=== PATIENT | male | born 1955 | race Caucasian/White ===

== ENCOUNTER 2018-03-20 13:22 | Inpatient (IN) | payer MEDICARE ==
[~2018-03-20] VITALS: Ht 182.9 cm; Wt 104.8 kg
[~2018-03-20 13:22] MED LIST: DULO30CA2 PO; GABA300C PO; HYDR4TAB57 PO; RAMI5CAP PO
[2018-03-20] MEDS ORDERED: RAMI2.5C PO (13:32)
[2018-03-20] MEDS ORDERED: LAMO25TA PO (13:32)
[2018-03-20] MEDS ORDERED: ALPR1TAB7 PO (13:32)
[2018-03-20] MEDS ORDERED: RIVA10TA PO (13:32)
[2018-03-20] MEDS ORDERED: HYDR4TAB4 PO (13:32)
[2018-03-20] MEDS ORDERED: CITA10TA9 PO (13:32)
[2018-03-20] MEDS ORDERED: ROPI0.5T PO (13:32)
[2018-03-20] MEDS ORDERED: MORP30TA PO (13:32)
[2018-03-20] MEDS ORDERED: ATOR20TA PO (13:32)
[2018-03-20 13:53] LABS: BASOPHILS % (AUTO) 0.6 % (0.0-2.0); EOSINOPHILS # (AUTO) 0.1 K/uL (0.0-0.7); EOSINOPHILS % (AUTO) 1.7 % (0.0-7.0); HEMATOCRIT 40.8 % (36.7-47.1); LYMPHOCYTES # (AUTO) 1.9 K/uL (20.0-40.0); LYMPHOCYTES % (AUTO) 33.3 % (20.5-51.5); MEAN CORPUSCULAR HEMOGLOBIN 31.3 uug (23.8-33.4); MEAN CORPUSCULAR HGB CONC 34 g/dL (32.5-36.3); MEAN CORPUSCULAR VOLUME 90.8 fL (73.0-96.2); MONOCYTES # (AUTO) 0.5 K/uL (2.0-10.0); MONOCYTES % (AUTO) 8.5 % (0.0-11.0); NEUTROPHILS # (AUTO) 3.2 K/uL (1.8-8.9); NEUTROPHILS % (AUTO) 55.9 % (38.5-71.5); PLATELET COUNT (AUTO) 169 K/uL (152-348); RED BLOOD CELL COUNT(AUTO) 4.49 MIL/uL (4.06-5.63); WHITE BLOOD COUNT (AUTO) 5.7 K/uL (3.6-10.2)
[2018-03-20 14:04] LABS: CARBON DIOXIDE 28 mmol/L (21-32); CHLORIDE 103 mmol/L (98-107); CREATININE 0.9 mg/dL (0.6-1.3); GLUCOSE 112 mg/dL (74-106); POTASSIUM 3.8 mmol/L (3.5-5.1); UREA NITROGEN, BLOOD 13 mg/dL (7-18)
[2018-03-20] MEDS ORDERED: HYDROMORPHONE HCL 2 MG TABLET PO ONE (14:15)
[2018-03-20] MEDS ORDERED: ALPRAZOLAM 0.25 MG TABLET PO ONE (14:15)
[2018-03-20] MEDS ORDERED: GABAPENTIN 300 MG CAPSULE PO ONE (14:15)
[2018-03-20 14:17] LABS: ALANINE AMINOTRANSFERASE 35 U/L (16-63); ALKALINE PHOSPHATASE 71 U/L (50-136); ASPARTATE AMINOTRANSFERASE 31 U/L (15-37); BILIRUBIN,DIRECT 0.1 mg/dL (0.0-0.2); BILIRUBIN,TOTAL 0.3 mg/dL (0.2-1.0); TOTAL PROTEIN, SERUM 7.4 g/dL (6.4-8.2)
[2018-03-20 14:20] LABS: ACETAMINOPHEN < 2.0 ug/mL (10-30)
[2018-03-20 14:21] LABS: ETHANOL < 3 MG/DL (0-0)
[2018-03-20] MEDS ORDERED: GABAPENTIN 300 MG CAPSULE ONE (14:47)
[2018-03-20] MEDS ORDERED: HYDROMORPHONE HCL 2 MG TABLET ONE (14:47)
[2018-03-20] MEDS ORDERED: ALPRAZOLAM 0.5 MG TABLET ONE (14:47)
[2018-03-20 14:49] LABS: *BILIRUBIN,URIN NEGATIVE (NEGATIVE); *BLOOD, URINE Trace-lysed (NEGATIVE); *CLARITY,URINE CLEAR (CLEAR); *COLOR,URINE YELLOW (YELLOW); *KETONES,URINE NEGATIVE (NEGATIVE); *PROTEIN,URINE NEGATIVE (NEGATIVE); *UROBILINOGEN,URINE 0.2 E.U./dl (NORMAL); LEUKOCYTE ESTERASE ,URINE NEGATIVE (NEGATIVE); NITRITE, URINE NEGATIVE (NEGATIVE); PH,URINE 5.5 (5.0-8.0); UGLUCOSE NEGATIVE (NEGATIVE)
[2018-03-20 15:03] LABS: *AMPHETAMINE, URINE NEGATIVE (NEGATIVE); *BARBITURATE, URINE NEGATIVE (NEGATIVE); *CANNABINOID, URINE POSITIVE (NEGATIVE); *COCCAINE, URINE NEGATIVE (NEGATIVE); *OPIATE, URINE POSITIVE (NEGATIVE); *PHENCYCLIDINE SCREEN,URINE NEGATIVE (NEGATIVE)
[2018-03-20 15:29] LABS: MUCUS,URINE MANY /LPF (0-FEW); WBC,URINE 0-3 /HPF (0-3)
--- NOTE | 2018-03-20 16:55 | NUR ---
Call placed to Dionisio Chin LCSW, for PET evaluation. ETA 60 min.
--- NOTE | 2018-03-20 18:00 | NUR ---
demian gaines at bedside to evaluate the pt
--- NOTE | 2018-03-20 18:59 | NUR ---
Note magy in EDM - 03/20/18 at 1859 by TORSTEN Patient discharged to home in stable conditon. Written and verbal after care instructions given. Patient verbalizes understanding of instructions.pt walks in steady gait. pt calling brother to come and pickp the pt. pt says will go to brother home for now.
--- NOTE | 2018-03-20 19:06 | NUR ---
hospital sandwich and juice provided for pt. pt at bedside the whole er stay. pt cooperative.
--- NOTE | 2018-03-20 19:07 | NUR ---
hands off report given to irasema del toro
--- NOTE | 2018-03-20 19:47 | NUR ---
Passed report to Yisel Massey RN.
--- NOTE | 2018-03-20 20:00 | NUR ---
ADMITTED PATIENT IN [facility] UNDER THE CARE DR CHILDS, PATIENT ON 72 HOUR HOLD DUE TO DANGER TO SELF, PATIENT ALERT, ACCOMPANIED BY . PATIENT NOTED WITH MULTIPLE SKIN SCRATCHES WITH SCAB ON BOTH HANDS, BOTH FOREARMS, AND SCRATCH ON LEFT FOREHEAD. PATIENT CALM AT THIS TIME, COOPERATIVE WITH CARE. NOTIFY
[2018-03-20] MEDS ORDERED: MAGNESIUM HYDROXIDE 30 ML LIQUID UDC PO PRN (20:15)
[2018-03-20] MEDS ORDERED: MAG HYDROX/AL HYDROX/SIMETH 30 ML LIQUID UDC PO PRN (20:15)
[2018-03-20 21:55] VITALS: BP 165/88
[2018-03-20] MEDS: LORAZEPAM 0.5 MG TABLET PO PRN (22:21)
[2018-03-20] MEDS ORDERED: hydrALAZINE HCL 25 MG TABLET PO PRN (23:15)
[2018-03-20] MEDS ORDERED: ropiniROLE 0.5 MG TABLET PO SCH (23:15)
[2018-03-20] MEDS ORDERED: HYDROMORPHONE HCL 8 MG PO SCH (23:15)
[2018-03-20] MEDS: GABAPENTIN 300 MG CAPSULE PO SCH (23:48)
[2018-03-21] MEDS: HYDROMORPHONE HCL 2 MG TABLET PO PRN ×4 (00:12→18:34)
[2018-03-21] MEDS ORDERED: ropiniROLE 0.25 MG TABLET ONE (00:52)
[2018-03-21] MEDS: LORAZEPAM 0.5 MG TABLET PO PRN ×4 (03:40→18:38)
[2018-03-21] MEDS ORDERED: HYDROMORPHONE HCL 2 MG TABLET ONE (06:14)
--- NOTE | 2018-03-21 07:10 | NUR ---
Requip was given by noc shift at 0052. Dilaudid was given by noc shift at 0614.
--- NOTE | 2018-03-21 07:45 | NUR ---
Shift report given by nightshift RN. Pt admitted for positive suicidal ideations and self-inflicted wounds on travis. upper arms. Rec'd pt awake, pacing hallway. Pt with episode of withdrawals with noc shift secondary to hx of self medicating himself with dilaudid around the clock at home. Will monitor for further episodes. Pt denies pain at this time. No s/s of acute distress noted. Requested for Ativan, administered as ordered for anxiety. All needs met at this time. Denies SI/HI, visual/auditory hallucinations. Will continue to monitor for change.
[2018-03-21 08:00] VITALS: BP 140/89
[2018-03-21] MEDS: NICOTINE 14 MG/24HR PATCH TD SCH (08:54)
[2018-03-21] MEDS: GABAPENTIN 300 MG CAPSULE PO SCH ×4 (08:54→18:00)
[2018-03-21] MEDS ORDERED: RIVAROXABAN 10 MG TABLET PO SCH (09:00)
[2018-03-21] MEDS: RAMIPRIL 1.25 MG CAPSULE PO SCH ×2 (09:00→21:07)
[2018-03-21] MEDS ORDERED: RAMIPRIL 2.5 MG CAPSULE PO SCH (09:00)
--- NOTE | 2018-03-21 11:45 | NUR ---
Noted pt with x3 episodes of moderate amount of yellow, watery with mucus bowel movements. Pt also complaining of abdominal pain. Relayed to RANGEL Ruiz with new order for Stool C-diff x1. Noted and carried out. Pt and aware.
[2018-03-21] MEDS ORDERED: ONDANSETRON ODT 4 MG TAB.RAPDIS SL PRN (13:30)
[2018-03-21] MEDS ORDERED: HYDROMORPHONE 2 MG/1 ML DISP.SYRIN IM ONE (13:30)
--- NOTE | 2018-03-21 13:45 | NUR ---
Found pt sitting on the floor vomiting into the trash can. at side. Per pt and , he did not fall. Per pt, his stomach has been "feeling funny" all morning along with the diarrhea he's been having. However, pt and also feels that it could also be him having withdrawal symptoms in result of having a disruption in his Dilaudid regimen he's been on for the last 8-20 years. Assisted back to bed. Denies injury. Noted pt with large amount of yellow mostly liquid gastric contents emesis. Relayed to RANGEL Ruiz with new order for Zofran and Dilaudid 2mg IM x1dose. Noted and carried out. Pt and notified.
--- NOTE | 2018-03-21 13:54 | NUR ---
Firearms Report: JEFF completed and submitted [facility] Firearms Report on 03/21/18.
[2018-03-21 15:51] VITALS: BP 154/76
--- NOTE | 2018-03-21 15:58 | NUR ---
Initial Discharge Instructions: Patient currently resides at home with his [ [place], [place] [address]; [phone]]. Per pt, he would like to return there when ready for discharge. Nut Roaster Helper will follow-up with patient's , Damaris Ramos ([phone]). SW will continue to collaborate with pt, family, and MD regarding appropriate discharge plans for the patient. SW will form a safe and proper discharge.
[2018-03-21] MEDS: ONDANSETRON ODT 4 MG TAB.RAPDIS SL PRN ×2 (18:05→23:59)
[2018-03-21] MEDS: RIVAROXABAN 10 MG TABLET PO SCH (18:32)
[2018-03-21 20:33] VITALS: BP 126/79
[2018-03-21] MEDS: CITALOPRAM 10 MG TABLET PO SCH (21:04)
[2018-03-21] MEDS: ropiniROLE 0.25 MG TABLET PO SCH (21:04)
[2018-03-21] MEDS: LAMOTRIGINE 25 MG TABLET PO SCH (21:04)
[2018-03-21] MEDS: ATORVASTATIN 20 MG TABLET PO SCH (21:04)
[2018-03-21] MEDS: DULOXETINE 30 MG CAPSULE.DR PO SCH (21:04)
[2018-03-22] MEDS: HYDROMORPHONE HCL 2 MG TABLET PO PRN ×4 (00:54→19:03)
[2018-03-22] MEDS: LORAZEPAM 0.5 MG TABLET PO PRN ×5 (03:31→23:53)
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
[2018-03-22] MEDS ORDERED: LOPERAMIDE HCL 2 MG CAPSULE PO ONE (06:45)
[2018-03-22 07:30] VITALS: BP 149/80
[2018-03-22] MEDS: DULOXETINE 30 MG CAPSULE.DR PO SCH (08:12)
[2018-03-22] MEDS: GABAPENTIN 300 MG CAPSULE PO SCH ×4 (08:12→20:44)
[2018-03-22] MEDS: LAMOTRIGINE 25 MG TABLET PO SCH ×2 (08:12→20:44)
[2018-03-22] MEDS: NICOTINE 14 MG/24HR PATCH TD SCH (08:13)
[2018-03-22] MEDS: ONDANSETRON ODT 4 MG TAB.RAPDIS SL PRN ×2 (09:37→17:12)
[2018-03-22 11:04] LABS: BASOPHILS % (AUTO) 0.6 % (0.0-2.0); EOSINOPHILS % (AUTO) 0.2 % (0.0-7.0); HEMATOCRIT 39.1 % (36.7-47.1); LYMPHOCYTES # (AUTO) 1.5 K/uL (20.0-40.0); LYMPHOCYTES % (AUTO) 20.2 % (20.5-51.5); MEAN CORPUSCULAR HEMOGLOBIN 31.9 uug (23.8-33.4); MEAN CORPUSCULAR HGB CONC 36 g/dL (32.5-36.3); MEAN CORPUSCULAR VOLUME 89.2 fL (73.0-96.2); MONOCYTES # (AUTO) 0.5 K/uL (2.0-10.0); NEUTROPHILS # (AUTO) 5.4 K/uL (1.8-8.9); PLATELET COUNT (AUTO) 185 K/uL (152-348); RED BLOOD CELL COUNT(AUTO) 4.39 MIL/uL (4.06-5.63); WHITE BLOOD COUNT (AUTO) 7.5 K/uL (3.6-10.2)
[2018-03-22 11:09] LABS: BILIRUBIN,TOTAL 0.6 mg/dL (0.2-1.0); MAGNESIUM 1.7 mg/dL (1.8-2.4); PHOSPHOROUS 3.1 mg/dL (2.5-4.9); POTASSIUM 3.5 mmol/L (3.5-5.1); TOTAL PROTEIN, SERUM 7.6 g/dL (6.4-8.2)
[2018-03-22] MEDS: RAMIPRIL 1.25 MG CAPSULE PO SCH ×2 (11:17→20:45)
[2018-03-22] MEDS: NEOMY/BACITRAC/POLYMI OINT 28.35 GM TUBE TOP SCH ×2 (11:18→20:46)
[2018-03-22] MEDS ORDERED: IV NS 1000 ML 1,000 ML IV PRN (12:30)
[2018-03-22] MEDS ORDERED: MAGNESIUM OXIDE 400 MG TABLET PO ONE (12:30)
--- NOTE | 2018-03-22 12:35 | NUR ---
Pt with new order for IVF NS @100ml/hr x1L. Started IV access to left hand 22g. Noted with good backflow, secured with tegaderm and labeled. Denies pain to site. Shirin well.
--- NOTE | 2018-03-22 13:30 | NUR ---
Pt left for CT scan of the head and abd/pelvis. Left via w/c in fair condition. Accompanied by x1 Radiology staff.
--- NOTE | 2018-03-22 13:52 | NUR ---
Relayed pt's negative stool c-diff results to RANGEL Ruiz with new order for Imodium 2mg PO Q6H PRN for diarrhea. Noted and carried out. Pt made aware.
[2018-03-22] MEDS ORDERED: LOPERAMIDE HCL 2 MG CAPSULE PO PRN (14:00)
--- NOTE | 2018-03-22 14:15 | NUR ---
Pt back from radiology. No s/s of acute distress noted. Connected back to IVF. Will continue to monitor for change.
[2018-03-22 15:08] VITALS: BP 134/82
[2018-03-22] MEDS: RIVAROXABAN 10 MG TABLET PO SCH (17:13)
[2018-03-22 20:12] VITALS: BP 135/83
[2018-03-22] MEDS: CITALOPRAM 10 MG TABLET PO SCH (20:43)
[2018-03-22] MEDS: TEMAZEPAM 7.5 MG CAPSULE PO PRN (20:43)
[2018-03-22] MEDS: ATORVASTATIN 20 MG TABLET PO SCH (20:43)
[2018-03-22] MEDS: ropiniROLE 0.25 MG TABLET PO SCH (20:44)
--- NOTE | 2018-03-22 23:45 | NUR ---
GPS/NSG IVF COMPLETE AND DISCONTINUED. IV SITE INTACT.
[2018-03-22] MEDS: ACETAMINOPHEN 325 MG TABLET PO PRN (23:53)
[2018-03-23] MEDS: HYDROMORPHONE HCL 2 MG TABLET PO PRN ×4 (01:40→23:29)
--- NOTE | 2018-03-23 06:34 | NUR ---
GPS/NSG PATIENT FIRST OBSERVED IN ROOM AWAKE. PATIENT VERBALIZED DISCOMFORT, PRN FOR PAIN INEFFECTIVE. PATIENT REQUESTED PRN FOR INSOMNIA, ALSO CALLED TO VERIFY THERE WAS AN ORDER FOR A SLEEPING PILL. ADMINISTERED ORDERED, OUTCOME EFFECTIVE FOR 2.00 HOURS PATIENT AWAKE REQUESTING PRN FOR ANXIETY, ADMINISTERED ORDERED FOLLOWED BY PATIENT VERBALIZING 10/10 PAIN LEVEL, PRN ADMINISTERED ORDERED. PATIENT AWAKE INTERMITTENTLY SLEPT A TOTAL OF FOUR HOURS, CONTINUE TO MONITOR FOR SAFETY.
[2018-03-23 07:30] VITALS: BP 115/66
[2018-03-23] MEDS: RAMIPRIL 1.25 MG CAPSULE PO SCH ×2 (08:08→20:46)
[2018-03-23] MEDS: DULOXETINE 30 MG CAPSULE.DR PO SCH (08:09)
[2018-03-23] MEDS: GABAPENTIN 300 MG CAPSULE PO SCH ×4 (08:10→20:47)
[2018-03-23] MEDS: NICOTINE 14 MG/24HR PATCH TD SCH (08:10)
[2018-03-23] MEDS: LAMOTRIGINE 25 MG TABLET PO SCH ×2 (08:10→20:47)
[2018-03-23] MEDS: ACETAMINOPHEN 325 MG TABLET PO PRN ×2 (08:11→16:29)
[2018-03-23] MEDS: NEOMY/BACITRAC/POLYMI OINT 28.35 GM TUBE TOP SCH ×2 (08:16→20:48)
--- NOTE | 2018-03-23 08:50 | NUR ---
PATIENT IN HIS ROOM COMPLAINING OF PAIN. UNWRAPPED ARMS. STATES HE CAN BARELY MOVE FROM THE PAIN.APPLIED OINTMENT TO ARMS. AND GIVEN PRN MEDICATIONS AND REGULAR MORNING MEDICATIONS.
--- NOTE | 2018-03-23 09:00 | NUR ---
AFTER TAKING PAIN MEDICATION PATIENT IS UP TO THE SIDE OF BED AND EATING BREAKFAST. NO COMPLAINTS OF PAIN ANYMORE AND IS ABLE TO MOVE AROUND.
[2018-03-23 09:18] LABS: BILIRUBIN,TOTAL 0.7 mg/dL (0.2-1.0); CREATININE 0.9 mg/dL (0.6-1.3); MAGNESIUM 1.8 mg/dL (1.8-2.4); POTASSIUM 3.2 mmol/L (3.5-5.1); TOTAL PROTEIN, SERUM 6.8 g/dL (6.4-8.2)
[2018-03-23 09:27] LABS: BASOPHILS % (AUTO) 0.4 % (0.0-2.0); EOSINOPHILS % (AUTO) 0.7 % (0.0-7.0); HEMATOCRIT 37.7 % (36.7-47.1); HEMOGLOBIN 13.3 g/dL (12.5-16.3); LYMPHOCYTES # (AUTO) 1.9 K/uL (20.0-40.0); LYMPHOCYTES % (AUTO) 29.2 % (20.5-51.5); MEAN CORPUSCULAR HEMOGLOBIN 31.4 uug (23.8-33.4); MEAN CORPUSCULAR HGB CONC 35 g/dL (32.5-36.3); MEAN CORPUSCULAR VOLUME 89.2 fL (73.0-96.2); MONOCYTES # (AUTO) 0.7 K/uL (2.0-10.0); MONOCYTES % (AUTO) 10.5 % (0.0-11.0); NEUTROPHILS # (AUTO) 3.8 K/uL (1.8-8.9); NEUTROPHILS % (AUTO) 59.2 % (38.5-71.5); PLATELET COUNT (AUTO) 169 K/uL (152-348); RED BLOOD CELL COUNT(AUTO) 4.23 MIL/uL (4.06-5.63); WHITE BLOOD COUNT (AUTO) 6.5 K/uL (3.6-10.2)
--- NOTE | 2018-03-23 10:09 | NUR ---
Noted pt with episode of fabricating stories. Pt claiming that his pain medication was 2 hrs past due this am. Reviewed pt's E-Mar and pt's PRN Q6hrs Dilaudid was given 30mins past 6hrs, not 2 hrs. Explained to pt, however pt disagrees. Redirected pt back to his room. Will continue to monitor for further behavioral manifestations.
[2018-03-23] MEDS ORDERED: POTASSIUM CHLORIDE 20 MEQ TAB.PRT.SR PO ONE (10:45)
[2018-03-23] MEDS ORDERED: NEUTRA PHOS PACKET PO ONE (10:45)
--- NOTE | 2018-03-23 12:09 | NUR ---
WOUNDS ARE CLOSED AND SCABBED OVER. HEALING WELL.
[2018-03-23] MEDS: LORAZEPAM 0.5 MG TABLET PO PRN ×2 (12:18→17:33)
--- NOTE | 2018-03-23 12:21 | NUR ---
PATIENT SHOWERED CHANGED CLOTHES COMBED HIS HAIR, ASKED FOR ATIVAN AT THIS TIME. PATIENT IS COMPLAINT WITH CARE. PATIENT ENGAGES WITH OTHER PATIENTS.
--- NOTE | 2018-03-23 14:05 | NUR ---
PATIENT IS INTERACTING WITH ANOTHER PATIENT IN HIS ROOM. PATIENT IS COOPERATIVE AND COMPLIANT.
[2018-03-23 15:17] VITALS: BP 147/90
[2018-03-23] MEDS: RIVAROXABAN 10 MG TABLET PO SCH (17:30)
[2018-03-23] MEDS: ONDANSETRON ODT 4 MG TAB.RAPDIS SL PRN (17:32)
[2018-03-23 20:24] VITALS: BP 151/80
[2018-03-23] MEDS: CITALOPRAM 10 MG TABLET PO SCH (20:46)
[2018-03-23] MEDS: ropiniROLE 0.25 MG TABLET PO SCH (20:47)
[2018-03-23] MEDS: ATORVASTATIN 20 MG TABLET PO SCH (20:47)
[2018-03-24] MEDS: ACETAMINOPHEN 325 MG TABLET PO PRN ×2 (01:47→11:35)
[2018-03-24] MEDS: TEMAZEPAM 7.5 MG CAPSULE PO PRN ×2 (01:47→21:32)
[2018-03-24] MEDS: HYDROMORPHONE HCL 2 MG TABLET PO PRN ×3 (06:38→18:38)
[2018-03-24 07:30] VITALS: BP 137/53
[2018-03-24 08:24] LABS: MAGNESIUM 1.9 mg/dL (1.8-2.4); PHOSPHOROUS 3.6 mg/dL (2.5-4.9); POTASSIUM 3.1 mmol/L (3.5-5.1)
[2018-03-24] MEDS: NICOTINE 14 MG/24HR PATCH TD SCH (08:30)
[2018-03-24] MEDS: LAMOTRIGINE 25 MG TABLET PO SCH ×2 (08:30→20:34)
[2018-03-24] MEDS: DULOXETINE 30 MG CAPSULE.DR PO SCH (08:30)
[2018-03-24] MEDS: GABAPENTIN 300 MG CAPSULE PO SCH ×4 (08:30→20:34)
[2018-03-24] MEDS: RAMIPRIL 1.25 MG CAPSULE PO SCH ×2 (08:31→20:34)
[2018-03-24] MEDS: NEOMY/BACITRAC/POLYMI OINT 28.35 GM TUBE TOP SCH ×2 (08:31→21:32)
[2018-03-24] MEDS: LORAZEPAM 0.5 MG TABLET PO PRN ×3 (09:58→22:38)
[2018-03-24] MEDS ORDERED: POTASSIUM CHLORIDE 20 MEQ TAB.PRT.SR PO ONE (12:15)
[2018-03-24 15:47] VITALS: BP 152/79
[2018-03-24] MEDS: RIVAROXABAN 10 MG TABLET PO SCH (17:37)
[2018-03-24 20:00] VITALS: BP 156/83
[2018-03-24] MEDS: ropiniROLE 0.25 MG TABLET PO SCH (20:33)
[2018-03-24] MEDS: ATORVASTATIN 20 MG TABLET PO SCH (20:34)
[2018-03-24] MEDS: CITALOPRAM 10 MG TABLET PO SCH (20:34)
--- NOTE | 2018-03-24 21:40 | NUR ---
RECEIVED Pt WALKING IN HALLWAY, A/O X 4, CALM AND PLEASANT, COOPERATIVE WITH MEDS AND CARE STAFF. DENIES S/I, COMPLAINING OF PAIN ON NECK, Pt WAS GIVEN DILAUDID 8MG BEFORE MILLSTONE CLEANER NURSE CAME, ATTEMPTED NON-PHARMACEUTICAL PAIN RELIEVING TECHNIQUES TO HELP WITH PAIN. Pt ASKED FOR SLEEPING PILL AT 2130, GIVEN RESTORIL 7.5 MG PO PRN PER FOR SLEEP PER MD ORDER. WILL MONITOR FOR MED EFFECTIVENESS. EMPHASIZED SAFETY.
--- NOTE | 2018-03-24 22:45 | NUR ---
RESTORIL GIVEN AT 0 WAS NOT EFFECTIVE3. Pt IS STILL AWAKE AND NOTED SLIGHT ANXIETY. REQUESTED AND WAS GIVEN ATIVAN AT AROUND 0. WILL MONITOR MED EFFECTIVENESS.
[2018-03-25] MEDS: HYDROMORPHONE HCL 2 MG TABLET PO PRN ×4 (02:34→21:29)
--- NOTE | 2018-03-25 02:40 | NUR ---
Pt WOKE UP AND CAME TO NURSE'S STATION COMPLAINING OF PAIN ON NECK. REQUESTED FOR PAIN MEDICATION. GIVEN DILAUDID 8 MG PO PRN FOR PAIN PER MD ORDER. WILL MONITOR FOR MED EFFECTIVENESS.
[2018-03-25] MEDS: LORAZEPAM 0.5 MG TABLET PO PRN ×3 (06:51→16:53)
[2018-03-25 07:30] VITALS: BP 135/84
[2018-03-25] MEDS: NICOTINE 14 MG/24HR PATCH TD SCH (09:18)
[2018-03-25] MEDS: DULOXETINE 30 MG CAPSULE.DR PO SCH (09:19)
[2018-03-25] MEDS: GABAPENTIN 300 MG CAPSULE PO SCH ×4 (09:20→20:29)
[2018-03-25] MEDS: LAMOTRIGINE 25 MG TABLET PO SCH ×2 (09:20→20:29)
[2018-03-25] MEDS: METOPROLOL TARTRATE 25 MG TABLET PO SCH ×2 (09:20→20:29)
[2018-03-25] MEDS: RAMIPRIL 1.25 MG CAPSULE PO SCH ×2 (09:21→20:30)
[2018-03-25] MEDS: NEOMY/BACITRAC/POLYMI OINT 28.35 GM TUBE TOP SCH ×2 (09:22→20:39)
[2018-03-25] MEDS: RIVAROXABAN 10 MG TABLET PO SCH (17:15)
[2018-03-25 17:16] VITALS: BP 135/88
[2018-03-25 20:07] VITALS: BP 120/70
[2018-03-25] MEDS: ropiniROLE 0.25 MG TABLET PO SCH (20:28)
[2018-03-25] MEDS: ATORVASTATIN 20 MG TABLET PO SCH (20:28)
[2018-03-25] MEDS: CITALOPRAM 10 MG TABLET PO SCH (20:28)
[2018-03-25] MEDS: TEMAZEPAM 7.5 MG CAPSULE PO PRN (22:34)
[2018-03-26] MEDS: ACETAMINOPHEN 325 MG TABLET PO PRN (02:19)
[2018-03-26] MEDS: LORAZEPAM 0.5 MG TABLET PO PRN ×2 (02:19→10:27)
[2018-03-26] MEDS: HYDROMORPHONE HCL 2 MG TABLET PO PRN ×2 (03:56→10:27)
[2018-03-26 07:30] VITALS: BP 105/58
[2018-03-26 07:46] LABS: CREATININE 0.9 mg/dL (0.6-1.3); POTASSIUM 3.7 mmol/L (3.5-5.1)
--- NOTE | 2018-03-26 08:32 | NUR ---
Discharge Note: Patient will be discharged back home with his [ [address], [place] [address]; [phone]] via private transportation at 10:30am. Spoke with patient's , Damaris Ramos ([phone]) who is willing to provide transportation and is aware and agreeable with discharge plans. Patient is aware and agreeable with discharge plans. Patient will continue following-up with his Primary Care Physician, Dr. Marshal Bradley [[id number] [facility] [id number], [place] [address]; ]. Patient will also continue to see his Pain Management Doctor, Dr. Bryan Rowan [[id number] , [address] [place] [id number]; [phone]]. Patient was provided with a list of Medicare-accepting Psychiatrists in his area for outpatient psychiatric follow-up. Patient was provided with a brief substance abuse intervention and referred to [facility] , [facility] , and [facility] . Patient was provided with outpatient mental health resources to [facility] , [facility] , and the National Suicide Prevention Lifeline
[2018-03-26] MEDS: DULOXETINE 30 MG CAPSULE.DR PO SCH (08:34)
[2018-03-26] MEDS: METOPROLOL TARTRATE 25 MG TABLET PO SCH (08:35)
[2018-03-26 08:36] VITALS: BP 129/75
[2018-03-26] MEDS: RAMIPRIL 1.25 MG CAPSULE PO SCH (08:36)
[2018-03-26] MEDS: LAMOTRIGINE 25 MG TABLET PO SCH (08:36)
[2018-03-26] MEDS: NICOTINE 14 MG/24HR PATCH TD SCH (08:36)
[2018-03-26] MEDS: GABAPENTIN 300 MG CAPSULE PO SCH (08:36)
[2018-03-26] MEDS: NEOMY/BACITRAC/POLYMI OINT 28.35 GM TUBE TOP SCH (08:38)
--- NOTE | 2018-03-26 11:00 | NUR ---
PT D/C VIA PRIVATE VEHICLE WITH [facility] AND IS AGREEABLE TO BE RESPONSIBLE FOR HIS CARE. PT D/C WITH ALL BELONGINGS, VALUABLES, PRESCRIPTIONS AND EXIT-CARE PACKET.PT REFUSED PICTURES AT THIS TIME. PT DENIES SUICIDAL IDEATION, HOMICIDAL IDEATION, HALLUCINATIONS AND DELUSIONS AT THIS TIME. PT CONTRACTED FOR SAFETY INSIDE AND OUTSIDE OF THE HOSPITAL.
== END 2018-03-26 11:00 | disposition home or self-care (01) | DRG 885 ==
LOC: ER 13:22 → GPS 19:31
PROVIDERS: ADMIT Psychiatry & Neurology Psychiatry; ATTEND Internal Medicine
DX: F33.2 Major depressive disorder, recurrent severe without psychotic features (principal); G20 Parkinson's disease; E83.39 Other disorders of phosphorus metabolism; E83.42 Hypomagnesemia; M48.54XA Collapsed vertebra, not elsewhere classified, thoracic region, initial encounter for fracture; I48.91 Unspecified atrial fibrillation; G62.9 Polyneuropathy, unspecified; F23 Brief psychotic disorder; E86.0 Dehydration; E66.9 Obesity, unspecified; E78.5 Hyperlipidemia, unspecified; E87.6 Hypokalemia; F17.210 Nicotine dependence, cigarettes, uncomplicated; I10 Essential (primary) hypertension; G89.4 Chronic pain syndrome; R29.6 Repeated falls; Z86.711 Personal history of pulmonary embolism; V89.2XXS Person injured in unspecified motor-vehicle accident, traffic, sequela; Z86.73 Personal history of transient ischemic attack (TIA), and cerebral infarction without residual deficits; R73.9 Hyperglycemia, unspecified; F39 Unspecified mood [affective] disorder; R74.0 Nonspecific elevation of levels of transaminase and lactic acid dehydrogenase [LDH]; R82.99 Other abnormal findings in urine; R42 Dizziness and giddiness; R91.8 Other nonspecific abnormal finding of lung field; F31.30 Bipolar disorder, current episode depressed, mild or moderate severity, unspecified; Z79.01 Long term (current) use of anticoagulants; Z68.31 Body mass index [BMI] 31.0-31.9, adult; M40.204 Unspecified kyphosis, thoracic region
CPT/HCPCS: 36415; 70450; 71250; 72125; 80307; 83735; 84100; 84443; 85025; A4663; G0480; G0480-TC; J1170; J7030; J8499; Q0162